=== PATIENT | male | born 1960 | race Caucasian/White ===

== ENCOUNTER 2024-08-28 13:57 | Inpatient (IN) | payer OTHER ==
[2024-08-28] MEDS: Sodium Chloride 0.9% 1,000 ML IV SCH (14:30)
[2024-08-28] MEDS: Propofol 200 MG/20 ML SDV IVPUSH ONE (15:23)
[2024-08-28 17:27] LABS: BASOPHILS PERCENT AUTO 0.2 % (0.0-1.0); EOSINOPHILS PERCENT AUTO 0.6 % (1.0-3.0); HEMATOCRIT 35.4 % (40.0-54.0); HEMOGLOBIN 11.5 g/dL (14.0-18.0); LYMPHOCYTES PERCENT AUTO 18.7 % (20.5-50.1); MEAN CORPUSCULAR HEMOGLOBIN 32.3 pg (27.0-34.0); MEAN CORPUSCULAR HGB CONC 32.5 g/dL (33.0-35.0); MEAN CORPUSCULAR VOLUME 99.4 fL (80-100); MONOCYTES PERCENT AUTO 10.6 % (2-8); NEUTROPHILS PERCENT AUTO 69.9 % (42.2-75.2); PLATELET COUNT,PLT 253 10^3/uL (150-450); RED BLOOD CELL COUNT 3.56 10^6/uL (4.6-6.2); WHITE BLOOD CELL COUNT,WBC 8.4 10^3/uL (5.0-10.0)
[2024-08-28] MEDS ORDERED: Polyethylene Glycol 3350 Powder 17 GM Packet PO PRN (17:38)
[2024-08-28] MEDS ORDERED: Docusate Sodium 100 MG Cap PO PRN (17:38)
[2024-08-28] MEDS ORDERED: Ketorolac 30 MG/ML SDV IVPUSH PRN (17:38)
[2024-08-28] MEDS ORDERED: Acetaminophen 325 MG Tab PO PRN (17:38)
[2024-08-28] MEDS ORDERED: Bisacodyl 5 MG Tab PO PRN (17:38)
[2024-08-28] MEDS ORDERED: Ondansetron 4 MG/2 ML SDV IVPUSH PRN (17:38)
[2024-08-28 17:44] LABS: ALBUMIN 3.2 g/dL (3.4-5.0); ANION GAP 8.9 mEq/L (7-13); BILIRUBIN TOTAL 1.1 mg/dL (0.2-1.0); BUN/CREATININE RATIO 30.7 (No establ ref range); CALCIUM 8.7 mg/dL (8.5-10.1); CREATININE 0.88 mg/dL (0.70-1.30); EST CRCL DRUG DOSING (CG) 90.63 mL/min; POTASSIUM,K 3.9 mmol/L (3.5-5.1); PROTEIN TOTAL,TP 5.8 g/dL (6.4-8.2)
[2024-08-28 17:48] LABS: A/G RATIO 1.23
[2024-08-28 18:10] LABS: PROTHROMBIN TIME 10.5 SEC (9.0-12.0); PTT,PARTIAL THROMBOPLSTIN TIME 23.9 SEC (22.0-34.0)
[2024-08-28] MEDS: Carbidopa/Levodopa 25-100 MG Tab PO SCH (21:12)
[2024-08-28] MEDS: Melatonin 3 MG Tab PO PRN (21:13)
[2024-08-28] MEDS: Acetaminophen/HYDROcodone 325-10 MG Tab PO PRN (21:13)
[2024-08-28] MEDS: Rosuvastatin 10 MG Tab PO SCH (21:13)
[2024-08-29 07:25] LABS: APPEARANCE,URINE CLEAR (CLEAR); BILIRUBIN,URINE NEGATIVE (NEGATIVE); COLOR,URINE DARK YELLOW (YELLOW); GLUCOSE,URINE NEGATIVE (NEGATIVE); KETONES,URINE TRACE (NEGATIVE); LEUKOCYTE ESTERASE,URINE NEGATIVE (NEGATIVE); NITRITE,URINE NEGATIVE (NEGATIVE); OCCULT BLOOD,URINE TRACE-INTACT (NEGATIVE); PROTEIN,URINE 30 (NEGATIVE); UROBILINOGEN,URINE 0.2 mg/dL (0.2-1.0)
[2024-08-29 07:42] LABS: AMORPHOUS SEDIMENT,URINE FEW /HPF (NOT SEEN); BACTERIA,URINE RARE /HPF (0-FEW/HPF); EPITHELIAL CELLS,URINE FEW /HPF (NOT SEEN); MUCUS,URINE MANY /LPF (NOT SEEN); WBC,URINE 0-5 /HPF (0-5/HPF)
[2024-08-29 08:20] LABS: BASOPHILS PERCENT AUTO 0.1 % (0.0-1.0); EOSINOPHILS PERCENT AUTO 2.2 % (1.0-3.0); HEMATOCRIT 36.8 % (40.0-54.0); HEMOGLOBIN 11.3 g/dL (14.0-18.0); LYMPHOCYTES PERCENT AUTO 19.4 % (20.5-50.1); MEAN CORPUSCULAR HEMOGLOBIN 31.2 pg (27.0-34.0); MEAN CORPUSCULAR HGB CONC 30.7 g/dL (33.0-35.0); MEAN CORPUSCULAR VOLUME 101.7 fL (80-100); MONOCYTES PERCENT AUTO 9.6 % (2-8); NEUTROPHILS PERCENT AUTO 68.7 % (42.2-75.2); PLATELET COUNT,PLT 247 10^3/uL (150-450); RED BLOOD CELL COUNT 3.62 10^6/uL (4.6-6.2); WHITE BLOOD CELL COUNT,WBC 7.7 10^3/uL (5.0-10.0)
[2024-08-29 08:59] LABS: PERCENT FE SATURATION 10.3 % (20.0-50.0)
[2024-08-29 09:09] LABS: ALBUMIN 3.1 g/dL (3.4-5.0); ANION GAP 9.2 mEq/L (7-13); BUN/CREATININE RATIO 27.5 (No establ ref range); CALCIUM 8.8 mg/dL (8.5-10.1); CREATININE 1.02 mg/dL (0.70-1.30); EST CRCL DRUG DOSING (CG) 78.19 mL/min; FOLIC ACID 9.9 ng/mL (8.6-58.9); POTASSIUM,K 4.2 mmol/L (3.5-5.1); PROTEIN TOTAL,TP 5.8 g/dL (6.4-8.2)
[2024-08-29 09:10] LABS: A/G RATIO 1.15
[2024-08-29] MEDS: Cholecalciferol (Vitamin D3) 25 MCG Tab PO SCH (09:47)
[2024-08-29] MEDS: Enoxaparin 40 MG/0.4 ML Syringe SUBCUT SCH (09:47)
[2024-08-29] MEDS ORDERED: Carbidopa/Levodopa 25-100 MG Tab PO SCH ×2 (12:00)
[2024-08-29] MEDS: Escitalopram 10 MG Tab PO SCH (12:06)
[2024-08-29] MEDS: Folic Acid 1 MG Tab PO SCH (12:06)
[2024-08-29] MEDS: Carbidopa/Levodopa 25-100 MG Tab PO SCH (12:06)
[2024-08-29] MEDS: Rosuvastatin 10 MG Tab PO SCH (20:32)
[2024-08-30 06:18] LABS: HEMATOCRIT 33.2 % (40.0-54.0); HEMOGLOBIN 10.5 g/dL (14.0-18.0); MEAN CORPUSCULAR HEMOGLOBIN 31.9 pg (27.0-34.0); MEAN CORPUSCULAR HGB CONC 31.6 g/dL (33.0-35.0); MEAN CORPUSCULAR VOLUME 100.9 fL (80-100); PLATELET COUNT,PLT 233 10^3/uL (150-450); RED BLOOD CELL COUNT 3.29 10^6/uL (4.6-6.2); WHITE BLOOD CELL COUNT,WBC 6.6 10^3/uL (5.0-10.0)
[2024-08-30 06:19] LABS: BASOPHILS PERCENT AUTO 0.3 % (0.0-1.0); MONOCYTES PERCENT AUTO 8.5 % (2-8); NEUTROPHILS PERCENT AUTO 58.2 % (42.2-75.2)
[2024-08-30 06:43] LABS: A/G RATIO 1.04; ALBUMIN 2.7 g/dL (3.4-5.0); BILIRUBIN TOTAL 0.8 mg/dL (0.2-1.0); BUN/CREATININE RATIO 32.2 (No establ ref range); CALCIUM 8.7 mg/dL (8.5-10.1); CREATININE 0.87 mg/dL (0.70-1.30); EST CRCL DRUG DOSING (CG) 91.67 mL/min; MAGNESIUM 1.9 mg/dL (1.8-2.4); PROTEIN TOTAL,TP 5.3 g/dL (6.4-8.2)
[2024-08-30] MEDS: Cholecalciferol (Vitamin D3) 25 MCG Tab PO SCH (08:59)
[2024-08-30] MEDS: Carboxymethylcellulose Sodium 1% Ophth Gel 0.4 ML UD EYEBOTH SCH (09:20)
[2024-08-31 06:14] LABS: BASOPHILS PERCENT AUTO 0.5 % (0.0-1.0); EOSINOPHILS PERCENT AUTO 2.6 % (1.0-3.0); HEMATOCRIT 34.6 % (40.0-54.0); HEMOGLOBIN 11.2 g/dL (14.0-18.0); MEAN CORPUSCULAR HEMOGLOBIN 32.4 pg (27.0-34.0); MEAN CORPUSCULAR HGB CONC 32.4 g/dL (33.0-35.0); NEUTROPHILS PERCENT AUTO 53.9 % (42.2-75.2); PLATELET COUNT,PLT 255 10^3/uL (150-450); RED BLOOD CELL COUNT 3.46 10^6/uL (4.6-6.2); WHITE BLOOD CELL COUNT,WBC 5.7 10^3/uL (5.0-10.0)
[2024-08-31 06:44] LABS: ALANINE AMINOTRANSFERASE,ALT 25 U/L (16-63); ALBUMIN 2.8 g/dL (3.4-5.0); ALKALINE PHOSPHATASE 57 U/L (46-116); ASPARTATE AMNIOTRANSFERASE,AST 42 U/L (15-37); BILIRUBIN TOTAL 0.8 mg/dL (0.2-1.0); BLOOD UREA NITROGEN,BUN 25 mg/dL (7-18); BUN/CREATININE RATIO 30.9 (No establ ref range); CALCIUM 8.6 mg/dL (8.5-10.1); CARBON DIOXIDE,CO2 29 mmol/L (21-32); CHLORIDE,CL 107 mmol/L (98-107); CREATININE 0.81 mg/dL (0.70-1.30); GLUCOSE RANDOM 94 mg/dL (70-99); MAGNESIUM 1.9 mg/dL (1.8-2.4); PROTEIN TOTAL,TP 5.6 g/dL (6.4-8.2); SODIUM,NA 143 mmol/L (136-145)
[2024-08-31 06:59] LABS: ESTIMATED GFR 97 mL/min (>=60)
[2024-08-31] MEDS: Carboxymethylcellulose Sodium 1% Ophth Gel 0.4 ML UD EYEBOTH PRN (13:51)
[2024-08-31] MEDS: Carbidopa/Levodopa 25-100 MG Tab.ER ONE (15:10)
[2024-08-31] MEDS: Carbidopa/Levodopa 25-100 MG Tab ONE (19:00)
[2024-09-01 06:17] LABS: BASOPHILS PERCENT AUTO 0.3 % (0.0-1.0); EOSINOPHILS PERCENT AUTO 2.1 % (1.0-3.0); HEMATOCRIT 34.4 % (40.0-54.0); HEMOGLOBIN 10.8 g/dL (14.0-18.0); LYMPHOCYTES PERCENT AUTO 26.4 % (20.5-50.1); MEAN CORPUSCULAR HEMOGLOBIN 31.1 pg (27.0-34.0); MEAN CORPUSCULAR HGB CONC 31.4 g/dL (33.0-35.0); MEAN CORPUSCULAR VOLUME 99.1 fL (80-100); MONOCYTES PERCENT AUTO 8.6 % (2-8); NEUTROPHILS PERCENT AUTO 62.6 % (42.2-75.2); PLATELET COUNT,PLT 260 10^3/uL (150-450); RED BLOOD CELL COUNT 3.47 10^6/uL (4.6-6.2); WHITE BLOOD CELL COUNT,WBC 7.2 10^3/uL (5.0-10.0)
[2024-09-01 06:42] LABS: ALBUMIN 2.6 g/dL (3.4-5.0); ANION GAP 9.1 mEq/L (7-13); BILIRUBIN TOTAL 0.7 mg/dL (0.2-1.0); CALCIUM 8.8 mg/dL (8.5-10.1); CREATININE 0.8 mg/dL (0.70-1.30); EST CRCL DRUG DOSING (CG) 99.69 mL/min; MAGNESIUM 1.9 mg/dL (1.8-2.4); POTASSIUM,K 4.1 mmol/L (3.5-5.1); PROTEIN TOTAL,TP 5.4 g/dL (6.4-8.2)
[2024-09-01 06:51] LABS: A/G RATIO 0.93
[2024-09-02 06:24] LABS: BASOPHILS PERCENT AUTO 0.5 % (0.0-1.0); EOSINOPHILS PERCENT AUTO 2.3 % (1.0-3.0); HEMATOCRIT 32.8 % (40.0-54.0); HEMOGLOBIN 10.7 g/dL (14.0-18.0); LYMPHOCYTES PERCENT AUTO 31.7 % (20.5-50.1); MEAN CORPUSCULAR HEMOGLOBIN 32.2 pg (27.0-34.0); MEAN CORPUSCULAR HGB CONC 32.6 g/dL (33.0-35.0); MEAN CORPUSCULAR VOLUME 98.8 fL (80-100); MONOCYTES PERCENT AUTO 9.7 % (2-8); NEUTROPHILS PERCENT AUTO 55.8 % (42.2-75.2); PLATELET COUNT,PLT 258 10^3/uL (150-450); RED BLOOD CELL COUNT 3.32 10^6/uL (4.6-6.2); WHITE BLOOD CELL COUNT,WBC 5.7 10^3/uL (5.0-10.0)
[2024-09-02 06:47] LABS: A/G RATIO 0.89; ALBUMIN 2.5 g/dL (3.4-5.0); ANION GAP 8.1 mEq/L (7-13); BILIRUBIN TOTAL 0.5 mg/dL (0.2-1.0); CALCIUM 8.7 mg/dL (8.5-10.1); CREATININE 0.8 mg/dL (0.70-1.30); EST CRCL DRUG DOSING (CG) 99.69 mL/min; MAGNESIUM 1.9 mg/dL (1.8-2.4); POTASSIUM,K 4.1 mmol/L (3.5-5.1); PROTEIN TOTAL,TP 5.3 g/dL (6.4-8.2)
[2024-09-02] MEDS: Sodium Chloride 0.9% 10 ML Syringe FLUSH PRN (08:37)
[2024-09-03 06:36] LABS: BASOPHILS PERCENT AUTO 0.4 % (0.0-1.0); EOSINOPHILS PERCENT AUTO 2.3 % (1.0-3.0); HEMATOCRIT 33.5 % (40.0-54.0); HEMOGLOBIN 10.4 g/dL (14.0-18.0); LYMPHOCYTES PERCENT AUTO 31.4 % (20.5-50.1); MEAN CORPUSCULAR HEMOGLOBIN 30.9 pg (27.0-34.0); MEAN CORPUSCULAR VOLUME 99.4 fL (80-100); MONOCYTES PERCENT AUTO 10.6 % (2-8); NEUTROPHILS PERCENT AUTO 55.3 % (42.2-75.2); PLATELET COUNT,PLT 272 10^3/uL (150-450); RED BLOOD CELL COUNT 3.37 10^6/uL (4.6-6.2); WHITE BLOOD CELL COUNT,WBC 5.7 10^3/uL (5.0-10.0)
[2024-09-03 07:05] LABS: ALBUMIN 2.6 g/dL (3.4-5.0); BILIRUBIN TOTAL 0.5 mg/dL (0.2-1.0); BUN/CREATININE RATIO 27.8 (No establ ref range); CALCIUM 8.6 mg/dL (8.5-10.1); CREATININE 0.79 mg/dL (0.70-1.30); EST CRCL DRUG DOSING (CG) 100.96 mL/min; PROTEIN TOTAL,TP 5.4 g/dL (6.4-8.2)
[2024-09-03 07:09] LABS: A/G RATIO 0.93
== END 2024-09-03 08:24 | DRG 563 ==
LOC: DL.ED 13:57 → DL.MS 17:18 → DL.ED 18:08 → OBSVTOIN 08-29 10:43
PROVIDERS: ADMIT Emergency Medicine; ATTEND Student in an Organized Health Care Education/Training Program
PROC: 0PSCXZZ Reposition Right Humeral Head, External Approach (ICD-10-PCS; principal; 2024-08-28)
DX: S42.141A Displaced fracture of glenoid cavity of scapula, right shoulder, initial encounter for closed fracture (principal); G20.A1 Parkinson's disease without dyskinesia, without mention of fluctuations; W16.212A Fall in (into) filled bathtub causing other injury, initial encounter; E78.5 Hyperlipidemia, unspecified; E55.9 Vitamin D deficiency, unspecified; E80.6 Other disorders of bilirubin metabolism; E88.09 Other disorders of plasma-protein metabolism, not elsewhere classified; R74.01 Elevation of levels of liver transaminase levels; Z74.09 Other reduced mobility; F43.21 Adjustment disorder with depressed mood; R31.9 Hematuria, unspecified; F12.20 Cannabis dependence, uncomplicated; M75.121 Complete rotator cuff tear or rupture of right shoulder, not specified as traumatic; D53.9 Nutritional anemia, unspecified; Z79.899 Other long term (current) drug therapy; Z91.81 History of falling; Z79.01 Long term (current) use of anticoagulants; W06.XXXA Fall from bed, initial encounter; Y92.89 Other specified places as the place of occurrence of the external cause
CPT/HCPCS: 36415 ×2; 51798; 73030 ×2; 80053 ×2; 81001; 82607; 82728; 82746; 83540; 83550; 83735 ×2; 85025 ×2; 85610; 85730; 99284; A9270 ×6; J1650; J2704; J7030; 23650; 96372; 97110-GO; 97110-GP; 97161-GP; 97165-GO; 97530-GO; 97530-GP; 99152; 99222; 99232; 99239; G0378